=== PATIENT | male | born 1955 | race Caucasian/White ===

== ENCOUNTER 2025-03-10 10:00 | Emergency (ER) | payer MEDICARE, MEDICAID ==
[~2025-03-10] VITALS: Ht 180.3 cm; Wt 68.7 kg
[2025-03-10 11:39] LABS: MEAN PLATELET VOLUME 7.0 FL (7.4-10.4); RED CELL DISTRIBUTION WIDTH 15.7 % (11.5-14.5)
[2025-03-10 11:45] LABS: CREATININE 0.91 MG/DL (0.60-1.10); TOTAL CARBON DIOXIDE 27.3 MMOL/L (24-32); eCRCL 74 ML/MIN; eGFR 83 ML/MIN
--- NOTE | 2025-03-10 12:43 | ELECTROCARDIOGRAPH REPORT ---
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
--- NOTE | 2025-03-10 12:47 | Physician Documentation ---
History of Present Illness ~ Chief Complaint: Hypertension Stated Complaint: HIGH BLOOD PRESSURE Time Seen by MD: 10:18 Primary Medical Doctor: [facility] HPI Presents to the emergency department for evaluation of increased blood pressure at home today. Patient reports his blood pressure is not normally this high he did take his normal medications at home presented with elevated systolic blood pressure in the 180. Patient reports that he had coffee and two eggs for breakfast prior to arriving at the emergency department. Patient denies headache change in cognition difficulty with speech chest pain numbness or ting ling. Reports that he normally feels not like himself and his blood pressure is high. Medication Reconciliation Allergies: Coded Allergies: No Known Allergies (Unverified , 03/10/25) Review of Systems ROS As stated above in the HPI, otherwise all systems are reviewed and negative. Physical Exam Vital Signs: Temperature: 97.7, Source: Temporal, Heart Rate: 47, Respiratory Rate: 15, BP: 149/92, Pulse Oximetry: 98, Weight: 68.700 Oxygen Flow Rate: 0 Physical Exam VITALS: Reviewed and as above. GENERAL: Alert, no apparent distress. HEENT: Normocephalic, atraumatic, PERRL, EOMI, dry mucosa, no erythema RESPIRATORY: Lungs clear, normal breath sounds, no respiratory distress. CHEST: No accessory muscle use, no retractions CV: Sinus bradycardia baseline for patient, rhythm, no edema, no murmur, No: JVD GI: Soft, non-tender, bowels sounds present, no rebound, guarding, or rigidity BACK: No CVA tenderness, or swelling MUSCULOSKELETAL No deformities, no edema SKIN: Warm and dry, no rash NEURO: Oriented x4, No motor or sensory deficit PSYCH: Normal mood and affect, no agitation Progress Results/Orders Results/Orders Completed Orders - AMY BRENNAN FLIGHT TEST [employer] Cbc/Diff (03/10/25 11:14) CMP (03/10/25 11:14) Clonidine Tablet (Catapres Tablet) (03/10/25 11:15) Vital Signs 03/10/25 03/10/25 03/10/25 03/10/25 10:05 10:23 11:57 12:13 Temp 97.7 Pulse 45 46 46 47 Resp 16 15 16 15 B/P (MAP) 182/95 167/99 (121) 166/84 (111) 149/92 (111) Pulse Ox 100 99 98 98 O2 Flow Rate 0 0 0 0 03/10/25 12:52 Temp 97.7 Pulse 46 Resp 16 B/P (MAP) 141/90 Pulse Ox 99 Laboratory Tests Test 03/10/25 11:21 White Blood Count 9.5 Red Blood Count 4.85 Hemoglobin 14.9 Hematocrit 43.8 Mean Corpuscular Volume 90.4 Mean Corpuscular Hemoglobin 30.8 Mean Corpuscular Hemoglobin Concent 34.0 Red Cell Distribution Width 15.7 H Platelet Count 308 Mean Platelet Volume 7.0 L Neutrophils (%) (Auto) 66.7 Lymphocytes (%) (Auto) 24.3 Monocytes (%) (Auto) 6.8 Eosinophils (%) (Auto) 1.5 Basophils (%) (Auto) 0.7 Neutrophils # (Auto) 6.3 Lymphocytes # (Auto) 2.3 Monocytes # (Auto) 0.6 Eosinophils # (Auto) 0.1 Basophils # (Auto) 0.1 CBC Comment Sodium Level 140 Potassium Level 4.6 Chloride Level 107 Carbon Dioxide Level 27.3 Anion Gap 6 L Blood Urea Nitrogen 19 H Creatinine 0.91 Estimated GFR/1.73 m2 83 BUN/Creatinine Ratio 20.9 H Glucose Level 94 Calcium Level 9.3 Total Bilirubin 0.6 Aspartate Amino Transf (AST/SGOT) 19 Alanine Aminotransferase (ALT/SGPT) 20 Alkaline Phosphatase 67 Total Protein 7.2 Albumin 3.8 Globulin 3.4 Albumin/Globulin Ratio 1.1 Chemistry Comments Medical Decision Making Findings Patient presents to the emergency department complaining of high blood pressure. Patient is otherwise asymptomatic without confusion, chest pain, dysuria, vision changes, focal neurological deficit or SOB. Patient is hypertensive here. Patient has taken his HTN medication today. Doubt hypertenstive emergency, patient with no signs of AMS, pulmonary edema, heart failure, ACS, PRESS syndrome, intracranial hemorrhage, renal infarction or failure or other end organ damage. Patient evaluated hurting extended period of time here in the emergency department and provided with 0.1 mg of clonidine appropriate resolution of hypertension. Plan to discharge patient home with PMD follow up. Patient will return to the emergency department with any worsening of his current symptoms or any additional concerning symptoms that we discussed here today. Differential Dx:Considerations: Include CHF, Include HTN, essential, Include HTN, accelerated, Include HTN, malignant, Include HTN, encephalopathy, Include medical noncompliance, Include medication withdrawal, Include pulmonary edema, Include renal failure, Include -induced, Include other Departure Disposition: 01 HOME / SELF CARE / HOMELESS Impression: Primary Impression: Benign hypertension Discharge Instructions: Hypertension, Adult Additional Instructions: You were evaluated for benign hypertension. He received a thorough examination and observation for an extended period of time. Lab work and EKG were all negative and reassuring today. Received 0.1 mg of clonidine that was effective at reducing your hypertension today. Discussed following up with your primary care provider. Return to the emergency department if you have any worsening or recurrent symptoms or any additional concerning symptoms that we discussed here today. Referrals: NO PRIMARY CARE PROVIDER (PCP) Education Educated: Patient, Family Educated regarding: treatment, need for follow up Signature Scribe Signature: A Attestation: Scribed for Amy Brennan by CARRIE Singh . 03/12/25 12:46 AMY BRENNAN Mar 10, 2025 12:47
[2025-03-10 12:52] VITALS: BP 141/90; PULSE 46; RESP 16; TEMP 97.7; O2SAT 99
== END 2025-03-10 12:52 | disposition home or self-care (01) ==
LOC: ER 10:00
DX: I10 Essential (primary) hypertension (principal)
CPT/HCPCS: 36415; 80053; 85025; 93005; 99285